=== PATIENT | female | born 1985 | race Caucasian/White ===

== ENCOUNTER 2020-06-19 21:45 | Observation (INO) | payer OTHER ==
[2020-06-19] MEDS ORDERED: ONDANSETRON 4 MG/2 ML VIAL IVP STA (22:09)
[2020-06-19] MEDS ORDERED: SODIUM CHLORIDE 0.9% 1,000 ML IV ONE (22:09)
[2020-06-19] MEDS ORDERED: KETOROLAC 15 MG/ML 1 ML VIAL IVP STA (22:09)
--- NOTE | 2020-06-19 23:15 | ED ---
General Adult HPI - General Chief complaint: Urogenital Stated complaint: Kidney Infection Time Seen by Provider: 06/19/20 22:00 Source: patient Mode of arrival: ambulatory Limitations: no limitations - History of Present Illness Initial comments: 34 year-old female patient presents to the emergency department for evaluation of UTI with increased right flank pain, vomiting, and fever. Patient states that she has had symptoms for the last two days. Has been taking a Bactrim. Denies any abnormal vaginal bleeding or discharge. Denies concern for STI. Denies chance of . Denies history of kidney infection or kidney stone. Patient denies any recent rash, cough, shortness of breath, chest pain, diarrhea, constipation, back pain, numbness, tingling, dizziness, weakness, headache, visual changes, or any other complaints. - Related Data Home Medications Medication Instructions Recorded Confirmed Acetaminophen Tab [Tylenol Tab] 1,000 mg PO BID PRN 06/19/20 06/19/20 Sulfamethox-Tmp 800-160Mg [Bactrim 1 tab PO Q12HR 06/19/20 06/19/20 DS 800-160 mg] Allergies Allergy/AdvReac Type Severity Reaction Status Date / Time No Known Allergies Allergy Unverified 06/19/20 22:55 Review of Systems ROS Statement: Those systems with pertinent positive or pertinent negative responses have been documented in the HPI. ROS Other: All systems not noted in ROS Statement are negative. Past Medical History Past Medical History: No Reported History History of Any Multi-Drug Resistant Organisms: None Reported Past Surgical History: No Surgical Hx Reported Smoking Status: Current some day smoker Past Alcohol Use History: None Reported Past Drug Use History: None Reported General Exam Limitations: no limitations General appearance: alert, in no apparent distress, other (Physical well- developed, well-nourished adult female patient in no acute distress. Vital signs upon presentation are temperature 98.0F, pulse 113, respirations 18, blood pressure 113/78, pulse ox 98% on room air.) ENT exam: Present: normal exam, normal oropharynx, mucous membranes moist Respiratory exam: Present: normal lung sounds bilaterally. Absent: respiratory distress, wheezes, rales, rhonchi, stridor Cardiovascular Exam: Present: regular rate, normal rhythm, normal heart sounds. Absent: systolic murmur, diastolic murmur, rubs, gallop, clicks GI/Abdominal exam: Present: soft, tenderness (right upper quadrant), normal bowel sounds. Absent: distended, guarding, rebound, rigid Back exam: Present: normal inspection, CVA tenderness (R). Absent: CVA tenderness (L) Neurological exam: Present: alert, oriented X3, CN II-XII intact Psychiatric exam: Present: normal affect, normal mood Skin exam: Present: warm, dry, intact, normal color. Absent: rash Course Vital Signs 06/19/20 06/19/20 21:46 23:01 Temperature 98.0 F Pulse Rate 113 H Respiratory 18 Rate Blood Pressure 113/78 94/56 O2 Sat by Pulse 98 Oximetry - Reevaluation(s) Reevaluation #1: 06/20/20 01:30 Sepsis diagnosed at 0130. Medical Decision Making - Medical Decision Making 34 year-old female patient presents to the emergency department for evaluation of right flank pain, diagnosed with "kidney infection" two days ago. Has been taking Bactrim. Symptoms worsened today. Physical examination reveals right CVA tenderness. Abdomen soft, non-tender. Labs reviewed, white blood cell count at 12.5. Did have signs of urinary tract infection. There is blood present and given unilateral CVA tenderness a did order CT of the abdomen and pelvis without contrast which did show a 1.1 cm x 0.6 sonometer stone in the right mid ureter with right-sided hydronephrosis and perinephric fat stranding. Patient was started on IV antibiotics. Did consult with the on-call urologist Dr. Craig who recommends admission, nothing by mouth, and IV antibiotics. I did discuss findings and results with the patient. She is agreeable this plan. - Lab Data Result diagrams: 06/19/20 23:03 06/20/20 00:01 Lab Results 06/19/20 06/19/20 06/19/20 Range/Units 22:36 22:36 23:03 WBC 12.5 H (3.8-10.6) k/uL RBC 4.18 (3.80-5.40) m/uL Hgb 11.9 (11.4-16.0) gm/dL Hct 36.1 (34.0-46.0) % MCV 86.5 (80.0-100.0) fL MCH 28.6 (25.0-35.0) pg MCHC 33.0 (31.0-37.0) g/dL RDW 14.3 (11.5-15.5) % Plt Count 152 (150-450) k/uL MPV 7.6 Neutrophils % 85 % Lymphocytes % 7 % Monocytes % 5 % Eosinophils % 0 % Basophils % 0 % Neutrophils # 10.6 H (1.3-7.7) k/uL Lymphocytes # 0.9 L (1.0-4.8) k/uL Monocytes # 0.6 (0-1.0) k/uL Eosinophils # 0.0 (0-0.7) k/uL Basophils # 0.0 (0-0.2) k/uL Sodium (137-145) mmol/L Potassium (3.5-5.1) mmol/L Chloride (98-107) mmol/L Carbon Dioxide (22-30) mmol/L Anion Gap mmol/L BUN (7-17) mg/dL Creatinine (0.52-1.04) mg/dL Est GFR (CKD-EPI)AfAm (>60 ml/min/1.73 sqM) Est GFR (CKD-EPI)NonAf (>60 ml/min/1.73 sqM) Glucose (74-99) mg/dL Plasma Lactic Acid Oliverio (0.7-2.0) mmol/L Calcium (8.4-10.2) mg/dL Total Bilirubin (0.2-1.3) mg/dL AST (14-36) U/L ALT (4-34) U/L Alkaline Phosphatase (38-126) U/L Total Protein (6.3-8.2) g/dL Albumin (3.5-5.0) g/dL Urine Color Yellow Urine Appearance Cloudy H (Clear) Urine pH 6.0 (5.0-8.0) Ur Specific [place] 1.005 (1.001-1.035) Urine Protein 1+ H (Negative) Urine Glucose (UA) Negative (Negative) Urine Ketones Trace H (Negative) Urine Blood Moderate H (Negative) Urine Nitrite Negative (Negative) Urine Bilirubin Negative (Negative) Urine Urobilinogen <2.0 (<2.0) mg/dL Ur Leukocyte Esterase Large H (Negative) Urine RBC 56 H (0-5) /hpf Urine WBC 116 H (0-5) /hpf Ur Squamous Epith Cells 17 H (0-4) /hpf Urine Bacteria Rare H (None) /hpf Urine HCG, Qual Not Detected (Not Detectd) 06/19/20 06/20/20 Range/Units 23:03 00:01 WBC (3.8-10.6) k/uL RBC (3.80-5.40) m/uL Hgb (11.4-16.0) gm/dL Hct (34.0-46.0) % MCV (80.0-100.0) fL MCH (25.0-35.0) pg MCHC (31.0-37.0) g/dL RDW (11.5-15.5) % Plt Count (150-450) k/uL MPV Neutrophils % % Lymphocytes % % Monocytes % % Eosinophils % % Basophils % % Neutrophils # (1.3-7.7) k/uL Lymphocytes # (1.0-4.8) k/uL Monocytes # (0-1.0) k/uL Eosinophils # (0-0.7) k/uL Basophils # (0-0.2) k/uL Sodium 130 L (137-145) mmol/L Potassium 3.9 (3.5-5.1) mmol/L Chloride 102 (98-107) mmol/L Carbon Dioxide 20 L (22-30) mmol/L Anion Gap 8 mmol/L BUN 22 H (7-17) mg/dL Creatinine 1.75 H (0.52-1.04) mg/dL Est GFR (CKD-EPI)AfAm 44 (>60 ml/min/1.73 sqM) Est GFR (CKD-EPI)NonAf 38 (>60 ml/min/1.73 sqM) Glucose 90 (74-99) mg/dL Plasma Lactic Acid Oliverio 1.0 (0.7-2.0) mmol/L Calcium 8.2 L (8.4-10.2) mg/dL Total Bilirubin 0.5 (0.2-1.3) mg/dL AST 33 (14-36) U/L ALT 25 (4-34) U/L Alkaline Phosphatase 97 (38-126) U/L Total Protein 6.3 (6.3-8.2) g/dL Albumin 2.6 L (3.5-5.0) g/dL Urine Color Urine Appearance (Clear) Urine pH (5.0-8.0) Ur Specific [place] (1.001-1.035) Urine Protein (Negative) Urine Glucose (UA) (Negative) Urine Ketones (Negative) Urine Blood (Negative) Urine Nitrite (Negative) Urine Bilirubin (Negative) Urine Urobilinogen (<2.0) mg/dL Ur Leukocyte Esterase (Negative) Urine RBC (0-5) /hpf Urine WBC (0-5) /hpf Ur Squamous Epith Cells (0-4) /hpf Urine Bacteria (None) /hpf Urine HCG, Qual (Not Detectd) - Radiology Data Radiology results: report reviewed CT abdomen and pelvis without contrast was obtained. Report was reviewed in its entirety. Impression by Dr. Monique shows 1.1 x0.6 cm obstructing stone in the right mid-ureter with moderate right hydroureteronephrosis and asymmetric right perinephric stranding. Disposition Clinical Impression: Kidney stone on right side, Urinary tract infection, Sepsis Disposition: ADMITTED IP TO THIS [facility] Condition: Serious Decision to Admit Reason: Admit from EC Decision Date: 06/20/20 Decision Time: 01:42
[2020-06-19 23:21] LABS: Basophils % (A) 0 %; Eosinophils % (A) 0 %; HCT 36.1 % (34.0-46.0); HGB 11.9 gm/dL (11.4-16.0); Lymphocytes # (A) 0.9 k/uL (1.0-4.8); Lymphocytes % (A) 7 %; MCH 28.6 pg (25.0-35.0); MCV 86.5 fL (80.0-100.0); Mean Platelet Volume 7.6; Monocytes # (A) 0.6 k/uL (0-1.0); Monocytes % (A) 5 %; Neutrophils # (A) 10.6 k/uL (1.3-7.7); Neutrophils % (A) 85 %; Platelet Count 152 k/uL (150-450); RBC 4.18 m/uL (3.80-5.40); RDW 14.3 % (11.5-15.5); WBC 12.5 k/uL (3.8-10.6)
[2020-06-20 00:05] LABS: Appearance,Urine Cloudy (Clear); Bacteria,Urine Rare /hpf; Bilirubin,Urine Negative (Negative); Blood,Urine Moderate (Negative); Color,Urine Yellow; Glucose,Urine (UA) Negative (Negative); Ketones,Urine Trace (Negative); Leukocyte Esterase,Urine Large (Negative); Nitrite,Urine Negative (Negative); Protein,Urine 1+ (Negative); RBC,Urine 56 /hpf (0-5); Specific Gravity,Urine 1.005 (1.001-1.035); Squamous Epithelial Cell,Urine 17 /hpf (0-4); Urobilinogen,Urine <2.0 mg/dL (<2.0); WBC,Urine 116 /hpf (0-5)
[2020-06-20 00:37] LABS: Albumin 2.6 g/dL (3.5-5.0); Calcium 8.2 mg/dL (8.4-10.2); Potassium 3.9 mmol/L (3.5-5.1); Total Bilirubin 0.5 mg/dL (0.2-1.3); Total Protein 6.3 g/dL (6.3-8.2)
[2020-06-20] MEDS ORDERED: cefTRIAXone IN SWFI 1,000 MG/10 ML SYRINGE IVP STA (01:28)
--- NOTE | 2020-06-20 01:28 | CT ---
EXAM: CT Abdomen and Pelvis Without Intravenous Contrast CLINICAL HISTORY: ITS.REASON CT Reason: Right flank pain TECHNIQUE: Axial computed tomography images of the abdomen and pelvis without intravenous contrast. CTDI is 10.4 mGy and DLP is 579.8 mGy-cm. This CT exam was performed using one or more of the following dose reduction techniques: automated exposure control, adjustment of the mA and/or kV according to patient size, and/or use of iterative reconstruction technique. COMPARISON: No relevant prior studies available. FINDINGS: Lung bases: Unremarkable. No mass. No consolidation. ABDOMEN: Liver: Unremarkable. Gallbladder and bile ducts: Unremarkable. No calcified stones. No ductal dilation. Pancreas: Unremarkable. No ductal dilation. Spleen: Unremarkable. No splenomegaly. Adrenals: Unremarkable. No mass. Kidneys and ureters: 1.1 x 0.6 cm obstructing stone in the mid-right ureter with moderate right hydroureteronephrosis and asymmetric right perinephric stranding. Stomach and bowel: Unremarkable. No obstruction. No mucosal thickening. PELVIS: Appendix: No findings to suggest acute appendicitis. Bladder: Unremarkable. No stones. Reproductive: Unremarkable as visualized. ABDOMEN and PELVIS: Intraperitoneal space: Unremarkable. No free air. No significant fluid collection. Bones/joints: No acute fracture. No dislocation. Soft tissues: Unremarkable. Vasculature: Unremarkable. No abdominal aortic aneurysm. Lymph nodes: Unremarkable. No enlarged lymph nodes. IMPRESSION: 1.1 x 0.6 cm obstructing stone in the mid-right ureter with moderate right hydroureteronephrosis and asymmetric right perinephric stranding.
[2020-06-20] MEDS ORDERED: NALOXONE 0.4 MG/ML 1 ML VIAL IV PRN (01:40)
[2020-06-20] MEDS ORDERED: HYDROmorphone 0.5 MG/0.5 ML SYRINGE IVP PRN (01:40)
[2020-06-20] MEDS ORDERED: ONDANSETRON 4 MG/2 ML VIAL IVP PRN (01:40)
[2020-06-20] MEDS: ACETAMINOPHEN TAB 325 MG TAB PO PRN (03:05)
[2020-06-20] MEDS: SODIUM CHLORIDE 0.9% 1,000 ML IV SCH ×3 (03:09→17:31)
--- NOTE | 2020-06-20 12:47 | P.GSHP ---
History of Present Illness H&P Date: 06/20/20 Chief Complaint: Right flank pain This is 34-year-old female with history of 1.1 cm right-sided midureteral stone. She indicated she's been having intractable pain for the past 4 days. She has been prescribed Bactrim for possible UTI. She indicated her pain has been assoc iated with nausea, she is also been complaining of chills. In the ER she underwent a CT which showed evidence of a 1.1 cm right-sided midureteral stone with hydronephrosis. Her creatinine was elevated at 1.75 her UA was concerning for a possible UTI, but of note it had 17 squamous cells. Denies any previous history of stones, no family history of stones. Today on evaluation she still having severe pain, that she rates as 7 out of 10. - Constitutional Constitutional: Reports chills, Denies fever - Cardiovascular Cardiovascular: Denies chest pain, Denies shortness of breath - Respiratory Respiratory: Denies cough, Denies 7 - Gastrointestinal Gastrointestinal: Reports nausea - Genitourinary (Female) Genitourinary: Reports flank pain, Denies dysuria, Denies hematuria - Musculoskeletal Musculoskeletal: Denies myalgias - Neurological Neurological: Denies numbness, Denies weakness Past Medical History Past Medical History: No Reported History History of Any Multi-Drug Resistant Organisms: None Reported Past Surgical History: No Surgical Hx Reported Smoking Status: Former smoker Past Alcohol Use History: None Reported Past Drug Use History: None Reported Medications and Allergies Home Medications Medication Instructions Recorded Confirmed Type Acetaminophen Tab [Tylenol Tab] 1,000 mg PO BID PRN 06/19/20 06/19/20 History Sulfamethox-Tmp 800-160Mg [Bactrim 1 tab PO Q12HR 06/19/20 06/19/20 History DS 800-160 mg] Allergies Allergy/AdvReac Type Severity Reaction Status Date / Time No Known Allergies Allergy Unverified 06/19/20 22:55 Surgical - Exam Vital Signs Temp Pulse Resp BP Pulse Ox 98.0 F 113 H 18 113/78 98 06/19/20 21:46 06/19/20 21:46 06/19/20 21:46 06/19/20 21:46 06/19/20 21:46 - General well developed, well nourished, moderate distress, moderate pain - Eyes PERRL, normal ocular movement - ENT normal nares, normal mucosa - Respiratory normal expansion, normal respiratory effort - Neurologic normal coordination, normal sensation - Psychiatric oriented to time, oriented to person, oriented to place, speech is normal Results - Labs 06/19/20 23:03 06/20/20 00:01 Abnormal Lab Results - Last 24 Hours (Table) 06/19/20 06/19/20 06/20/20 Range/Units 22:36 23:03 00:01 WBC 12.5 H (3.8-10.6) k/uL Neutrophils # 10.6 H (1.3-7.7) k/uL Lymphocytes # 0.9 L (1.0-4.8) k/uL Sodium 130 L (137-145) mmol/L Carbon Dioxide 20 L (22-30) mmol/L BUN 22 H (7-17) mg/dL Creatinine 1.75 H (0.52-1.04) mg/dL Calcium 8.2 L (8.4-10.2) mg/dL Albumin 2.6 L (3.5-5.0) g/dL Urine Appearance Cloudy H (Clear) Urine Protein 1+ H (Negative) Urine Ketones Trace H (Negative) Urine Blood Moderate H (Negative) Ur Leukocyte Esterase Large H (Negative) Urine RBC 56 H (0-5) /hpf Urine WBC 116 H (0-5) /hpf Ur Squamous Epith Cells 17 H (0-4) /hpf Urine Bacteria Rare H (None) /hpf Microbiology - Last 24 Hours (Table) 06/19/20 22:36 Urine Culture - Preliminary Urine,Voided Diabetes panel 06/20/20 Range/Units 00:01 Sodium 130 L (137-145) mmol/L Potassium 3.9 (3.5-5.1) mmol/L Chloride 102 (98-107) mmol/L Carbon Dioxide 20 L (22-30) mmol/L BUN 22 H (7-17) mg/dL Creatinine 1.75 H (0.52-1.04) mg/dL Glucose 90 (74-99) mg/dL Calcium 8.2 L (8.4-10.2) mg/dL AST 33 (14-36) U/L ALT 25 (4-34) U/L Alkaline Phosphatase 97 (38-126) U/L Total Protein 6.3 (6.3-8.2) g/dL Albumin 2.6 L (3.5-5.0) g/dL Calcium panel 06/20/20 Range/Units 00:01 Calcium 8.2 L (8.4-10.2) mg/dL Albumin 2.6 L (3.5-5.0) g/dL Pituitary panel 06/20/20 Range/Units 00:01 Sodium 130 L (137-145) mmol/L Potassium 3.9 (3.5-5.1) mmol/L Chloride 102 (98-107) mmol/L Carbon Dioxide 20 L (22-30) mmol/L BUN 22 H (7-17) mg/dL Creatinine 1.75 H (0.52-1.04) mg/dL Glucose 90 (74-99) mg/dL Calcium 8.2 L (8.4-10.2) mg/dL Adrenal panel 06/20/20 Range/Units 00:01 Sodium 130 L (137-145) mmol/L Potassium 3.9 (3.5-5.1) mmol/L Chloride 102 (98-107) mmol/L Carbon Dioxide 20 L (22-30) mmol/L BUN 22 H (7-17) mg/dL Creatinine 1.75 H (0.52-1.04) mg/dL Glucose 90 (74-99) mg/dL Calcium 8.2 L (8.4-10.2) mg/dL Total Bilirubin 0.5 (0.2-1.3) mg/dL AST 33 (14-36) U/L ALT 25 (4-34) U/L Alkaline Phosphatase 97 (38-126) U/L Total Protein 6.3 (6.3-8.2) g/dL Albumin 2.6 L (3.5-5.0) g/dL Assessment and Plan Assessment: 34-year-old female with 1.1 cm right-sided midureteral stone. UA is concerning for UTI, but it's poor specimen. . Discussed with her given the possibility of a UTI primary ureteroscopy cannot be performed. Discussed with her the option of doing a stent placement, she was agreeable with the plan was to go ahead and proceed was stent placement. She understood the risk of bleeding and infection, also understood that this is not a definitive stone treatment. Understood the risk of stent encrustation. -Keep NPO -Will proceed with OR for right sided stent placement
[2020-06-20] MEDS ORDERED: IV FLUID CONTINUATION 350 ML IV ONE (15:08)
[2020-06-20] MEDS ORDERED: LIDOCAINE 1% (10MG/ML) FOR IV START INTRADERMA PRN (15:14)
[2020-06-20] MEDS ORDERED: DEXAMETHASONE SOD PHOSPHATE 4 MG/ML 1 ML VIAL IV ONE ×2 (15:14→15:18)
[2020-06-20] MEDS ORDERED: SCOPOLAMINE 1.5MG/72HR PATCH TRANSDERM ONE ×2 (15:14→15:18)
[2020-06-20] MEDS ORDERED: LACTATED RINGERS 1,000 ML IV SCH (15:15)
[2020-06-20] MEDS ORDERED: IOPAMIDOL-370 50ML BTL MISCELLANE ONE (15:56)
[2020-06-20] MEDS ORDERED: PROPOFOL 10 MG/ML 20 ML VIAL IV ONE (16:05)
[2020-06-20] MEDS ORDERED: MIDAZOLAM 2 MG/2 ML VIAL ONE (16:05)
[2020-06-20] MEDS ORDERED: fentaNYL (PF) 50 MCG/ML 2 ML AMP ONE (16:05)
[2020-06-20] MEDS ORDERED: SUCCINYLCHOLINE CHLORIDE 100 MG/5 ML SYR IV ONE (16:05)
[2020-06-20] MEDS ORDERED: SODIUM CHLORIDE 0.9% 100 ML with GENTAMICIN 80 MG IV ONE ×2 (16:20)
[2020-06-20] MEDS ORDERED: LACTATED RINGERS 1,000 ML IV ONE (16:28)
--- NOTE | 2020-06-20 16:43 | P.OP ---
Date of Procedure: 06/20/20 Preoperative Diagnosis: right ureteral calculi Postoperative Diagnosis: same Procedure(s) Performed: Cystoscopy, right stent placement Implants: 6-Kittitian by 24 cm stent Anesthesia: NAA Surgeon: Vivek Craig Estimated Blood Loss (ml): 0 Pathology: none sent Condition: stable Disposition: PACU Indications for Procedure: This is a 34-year-old female history 1.1 cm midureteral stone. She's been symptomatic from her stone and having intractable pain. Her UA was concerning for UTI, but of note it was contaminated. Discussed with her given the possibility of a UTI, primary Ureteroscopy cannot be performed. Discussed with her the option of ureteral stent. Discussed with her the risk which includes but not limited to bleeding, infection, injury to the ureter. Discussed the risk of stent encrustation, and the importance of follow-up for ureteroscopy. She understood all the risk and agreed proceed with right sided ureteral stent placement Description of Procedure: Patient brought to the operating room, general anesthesia was induced. She was prepped and draped in sterile fashion and placed in dorsal lithotomy position. Cystoscopy fitted with 22-Kittitian sheath was inserted per urethra, cystoscopy was performed showed no abnormality within the bladder. Attention was then carried to the right ureteral orifice which was intubated with a sensor wire, a ureteral catheter was passed over the wire, and right-sided renal aspirate was obtained and sent for culture. At this time the wire was readvanced through the catheter and the catheter was removed with the wire in place. Next a ureteral stent was passed over the wire, the proximal curl was visualized on fluoroscopy and the distal curl was visualized using the cystoscope. The bladder was emptied at the end of the case. The patient tolerated the procedure well was taken to PACU in stable condition
--- NOTE | 2020-06-20 16:57 | FL ---
Fluoroscopy HISTORY: Ureteral stent placement 9 seconds fluoroscopy time supplied to the referring clinician. 2 intraoperative C-arm images docume nt the procedure. See dictated report from urology.
[2020-06-20] MEDS ORDERED: KETOROLAC 15 MG/ML 1 ML VIAL IVP ONE (17:02)
[2020-06-21] MEDS: SODIUM CHLORIDE 0.9% 1,000 ML IV SCH ×2 (03:59→08:38)
[2020-06-21] MEDS ORDERED: fentaNYL (PF) 50 MCG/ML 2 ML AMP IVP PRN (07:00)
[2020-06-21] MEDS ORDERED: HYDROmorphone 0.5 MG/0.5 ML SYRINGE IVP PRN (07:00)
[2020-06-21] MEDS ORDERED: METOCLOPRAMIDE 5 MG/ML 2 ML VIAL IVP PRN (07:00)
--- NOTE | 2020-06-21 07:31 | P.DS ---
Providers Date of admission: 06/20/20 01:44 Attending physician: Vivek Craig MD Primary care physician: Stated None Hospital Course: This 34. She presented to the emergency room for right flank pain. She is found to have a 1 cm distal right ureteral stone. There is a question of urine infection on antibiotics prior to this.Dr Craig did cystoscopy and placement of a right double-J catheter. This is relieved her discomfort. Her vital signs are stable. She'll be transferred back to the detention. She will go back on Bactrim double strength. She'll take Tylenol for pain. She'll follow-up with Dr. Craig in one week. He'll make arrangements for right ureteroscopy laser lithotripsy stone and stent removal. Her condition is good. She is in no pain. Patient Condition at Discharge: Good Plan - Discharge Summary Discharge Rx Participant: No New Discharge Prescriptions: New Sulfamethoxazole/Trimethoprim [Bactrim DS 800-160 mg] 1 each PO Q12HR #20 tablet No Action Sulfamethox-Tmp 800-160Mg [Bactrim DS 800-160 mg] 1 tab PO Q12HR Acetaminophen Tab [Tylenol Tab] 1,000 mg PO BID PRN PRN Reason: Pain Discharge Medication List Acetaminophen Tab [Tylenol Tab] 1,000 mg PO BID PRN 06/19/20 [History] Sulfamethox-Tmp 800-160Mg [Bactrim DS 800-160 mg] 1 tab PO Q12HR 06/19/20 [History] Sulfamethoxazole/Trimethoprim [Bactrim DS 800-160 mg] 1 each PO Q12HR #20 tablet 06/21/20 [Rx] Follow up Appointment(s)/Referral(s): None,Stated [Primary Care Provider] - 1-2 days Vivek Craig MD [STAFF PHYSICIAN] - 1 Week Patient Instructions/Handouts: *Surgery [facility] - Scopalamine Patch Instructions Discharge Disposition: TRANSFER TO SNF/ECF
[2020-06-21 08:27] VITALS: BP 99/60; PULSE 54; RESP 18; TEMP 97.4
[2020-06-21] MEDS: ACETAMINOPHEN TAB 325 MG TAB PO PRN (09:18)
== END 2020-06-21 13:47 ==
LOC: EC 21:45 → 6NMEDSUR 06-20 01:44 → INTOOBSV 06-20 01:44 → UNDODISIN 06-21 13:47
PROVIDERS: ADMIT Urology; ATTEND Urology
PROC: 0T768DZ Dilation of Right Ureter with Intraluminal Device, Via Natural or Artificial Opening Endoscopic (ICD-10-PCS; principal; 2020-06-20 10:15)
DX: N20.2 Calculus of kidney with calculus of ureter (principal); N13.6 Pyonephrosis; F17.210 Nicotine dependence, cigarettes, uncomplicated; Z20.822 Contact with and (suspected) exposure to COVID-19; Z65.3 Problems related to other legal circumstances
CPT/HCPCS: 52332; 96361; 96374; 96375; 99285; 36415 ×2; 80053; 83605; 85025; 81001; 81025; 87040; 87070; 87086; 87205; 87077; 87186; 87635; 74176; G0378 ×2; C2625; C1758; C1769; J2250; J1580; J1100; J2405; J0696; J3010; J1885 ×2; J0330; J2704

== ENCOUNTER → 2020-08-05 | Day surgery (SDC) | payer BC, OTHER ==
[2020-08-03 15:25] VITALS: BMI 31.7
--- NOTE | 2020-08-04 17:10 | P.HPIHPCON ---
History of Present Illness H&P Date: 08/04/20 Chief Complaint: Right-sided ureteral stone This is a 34-year-old female with history of a 1.1 cm right-sided midureteral stone. She is status post stent placement on June 20, she had a UTI at that time. This completed a course of by mouth antibiotics. She presents today for definitive stone management. Options of ureteroscopy and ESWL were discussed with her. She agreed to proceed with ureteroscopy. Discussed with her the risks which includes but not limited to bleeding, infection, injury to the ureter. She understood all the risk and agreed to proceed. Of note patient lives in a senior living house, and has been unable to come in for clinic visit, a urine culture could not be obtained on her. There is also concern of noncompliance, and a concern of a retained stent. Given this findings decision was made to place the patient on preoperative by mouth antibiotics based on her last culture sensitivity, she did understand given the lack of urine culture prior to surgery she is at increased risk of sepsis Consent for Procedure: I have explained the operation/procedure to the patient, including the risks, benefits, side effects, alternative therapies (including not receiving the proposed treatment or service), the likelihood of the patient achieving his/her goals, and potential recuperation problems for the procedure/sedation/analgesia, as well as any blood products, if indicated. I also explained to the patient the risks, benefits and side effects of the alternatives, as well as the risks related to not receiving the proposed procedure, care, treatment, or services. Past Medical History Past Medical History: No Reported History Additional Past Medical History / Comment(s): Kidney stone, has Rt ureteral stent History of Any Multi-Drug Resistant Organisms: None Reported Past Surgical History: Appendectomy, Section Additional Past Surgical History / Comment(s): C-S x3. Pilonidal cyst exc. Cysto w/ Rt ureteral stent Past Anesthesia/Blood Transfusion Reactions: Previous Problems w/ Anesthesia Additional Past Anesthesia/Blood Transfusion Reaction / Comment(s): 2009 w/ "pilonidal cyst she coded, had Propofol" Smoking Status: Current every day smoker - Past Family History Mother Family Medical History: No Reported History Medications and Allergies Home Medications Medication Instructions Recorded Confirmed Type Cephalexin [Keflex] 500 mg PO Q8HR 08/03/20 08/03/20 History Vitamin C/Biotin [Hair, Skin and 1 tab PO DAILY 08/03/20 08/03/20 History Nails] Allergies Allergy/AdvReac Type Severity Reaction Status Date / Time No Known Allergies Allergy Unverified 08/03/20 15:03 Surgical - Exam - General no distress, no pain - Eyes PERRL, normal ocular movement - ENT normal nares, normal mucosa - Abdomen Abdomen: soft, non tender - Psychiatric oriented to time, oriented to person, oriented to place Assessment and Plan Assessment: 34-year-old female history of right-sided ureteral stone -Or for right-sided ureteroscopy, with holmium laser lithotripsy, stone basketing and and stent exchange
[~2020-08-05] MED LIST: DEXAMETHASONE SOD PHOSPHATE 4 MG/ML 1 ML VIAL IV ONE; HYDROcodone/APAP 5-325MG 1 EACH TAB ONE; HYDROcodone/APAP 5-325MG 1 EACH TAB PO ONE; HYDROmorphone (PF) 1 MG/ML ONE; HYDROmorphone 0.5 MG/0.5 ML SYRINGE IVP PRN; IOPAMIDOL-370 50ML BTL MISCELLANE ONE; LACTATED RINGERS 1,000 ML IV ONE; LACTATED RINGERS 1,000 ML IV SCH; LIDOCAINE 1% INJ 10MG/ML (20 ML MDV) ONE; MIDAZOLAM 2 MG/2 ML VIAL IV PRN; MIDAZOLAM 2 MG/2 ML VIAL ONE; ONDANSETRON 4 MG/2 ML VIAL IVP ONE; PROPOFOL 10 MG/ML 20 ML VIAL IV ONE; SCOPOLAMINE 1.5MG/72HR PATCH TRANSDERM ONE; SUCCINYLCHOLINE CHLORIDE 100 MG/5 ML SYR IV ONE; fentaNYL (PF) 50 MCG/ML 2 ML AMP ONE
[2020-08-05 11:01] LABS: HCT 38.6 % (34.0-46.0); HGB 13.3 gm/dL (11.4-16.0); MCH 29.4 pg (25.0-35.0); MCHC 34.5 g/dL (31.0-37.0); Mean Platelet Volume 6.8; Platelet Count 261 k/uL (150-450); RBC 4.54 m/uL (3.80-5.40); RDW 13.7 % (11.5-15.5); WBC 7.5 k/uL (3.8-10.6)
[2020-08-05 11:07] LABS: Appearance,Urine Clear (Clear); Bacteria,Urine Rare /hpf; Bilirubin,Urine Negative (Negative); Blood,Urine Large (Negative); Color,Urine Light Yellow; Glucose,Urine (UA) Negative (Negative); Ketones,Urine Negative (Negative); Leukocyte Esterase,Urine Large (Negative); Mucus,Urine Rare /hpf; Nitrite,Urine Negative (Negative); PH, Urine 5.5 (5.0-8.0); Protein,Urine Trace (Negative); RBC,Urine 83 /hpf (0-5); Specific Gravity,Urine 1.007 (1.001-1.035); Squamous Epithelial Cell,Urine 2 /hpf (0-4); Urobilinogen,Urine <2.0 mg/dL (<2.0); WBC,Urine 8 /hpf (0-5)
[2020-08-05 11:14] LABS: African American GFR (CKD) >90 (>60 ml/min/1.73 sqM); Anion Gap 6 mmol/L; Blood Urea Nitrogen 16 mg/dL (7-17); Calcium 9.1 mg/dL (8.4-10.2); Carbon Dioxide 23 mmol/L (22-30); Chloride 108 mmol/L (98-107); Glucose 91 mg/dL (74-99); Non-African American GFR(CKD) >90 (>60 ml/min/1.73 sqM); Potassium 4.4 mmol/L (3.5-5.1); Sodium 137 mmol/L (137-145)
--- NOTE | 2020-08-05 11:33 | XR ---
KUB HISTORY: Right ureteral calculus, preop Frontal KUB and [address] scan 06/20/2020 Right-sided double-J stent is in place. There is an oval calcification superimposed over the L5-S1 di sc space measuring approximately 2.1 cm in cephalad to caudal dimension by 6 mm in transverse dimensi on consistent with ureteral calculus. There are overlying artifacts. Lung bases are clear. IMPRESSION: Imaging from urology, right ureteral calculus
--- NOTE | 2020-08-05 13:40 | P.OP ---
Date of Procedure: 08/05/20 Preoperative Diagnosis: Right ureteral stone Postoperative Diagnosis: Same Procedure(s) Performed: Cystoscopy, right ureteroscopy, holmium laser lithotripsy, stone basketing and stent removal Implants: None Anesthesia: NAA Surgeon: Vivek Craig Estimated Blood Loss (ml): 5 Pathology: other (Right ureteral stone) Condition: stable Disposition: PACU Indications for Procedure: This is a 34-year-old female with history of a 1.1 cm right-sided midureteral stone. She is status post stent placement on June 20, she had a UTI at that time. This completed a course of by mouth antibiotics. She presents today for definitive stone management. Options of ureteroscopy and ESWL were discussed with her. She agreed to proceed with ureteroscopy. Discussed with her the risks which includes but not limited to bleeding, infection, injury to the ureter. She understood all the risk and agreed to proceed. Of note patient lives in a [facility] house, and has been unable to come in for clinic visit, a urine culture could not be obtained on her. There is also concern of noncompliance, and a concern of a retained stent. Given this findings decision was made to place the patient on preoperative by mouth antibiotics based on her last culture sensitivity, she did understand given the lack of urine culture prior to surgery she is at increased risk of sepsis Operative Findings: Right midureteral stone Description of Procedure: She was brought to the operating room, general anesthesia was induced. She was prepped and draped in sterile fashion a placement dorsal lithotomy position. A cystoscopy fitted with 21-[place] sheath was inserted per urethra, cystoscopy was performed which showed no abnormality within the bladder. at this time the stent was grasped and removed. Next a semirigid ureteroscope was inserted and advanced up the right ureteral orifice, the stone was encountered in the mid ureter, the stone was fragmented into small fragments, sizable fragments were removed using the stone basket. One of the fragments migrated up to the kidney, at this time a sensor wire was advanced through the scope and the scope was withdrawn with the wire in place. Next th access sheath was passed over the wire into the proximal ureter. Next a flexible ureteroscope was inserted and renoscopy was performed which showed the fragment within the kidney. The fragment was further fragmented, fragments were removed using the stone basket. Repeat renoscopy showed no injury to the kidney or any sizable fragments. Pullback ureteroscopy was performed showed no injury to the ureter or any sizabl e fragments. There was no evidence of ureteral edema, thus a stent was not placed. The bladder was emptied at the end of the case. Patient tolerated procedure well was taken to PACU in stable condition
[2020-08-05 13:45] VITALS: TEMP 97
--- NOTE | 2020-08-05 13:56 | FL ---
Fluoroscopy HISTORY: Right kidney stone 2 seconds fluoroscopy time supplied to the referring clinician. 1 intraoperative C-arm images docume nt the procedure. See dictated report from urology.
[2020-08-05 14:09] VITALS: RESP 17
[2020-08-05 14:27] VITALS: BP 122/72; PULSE 63
== END | disposition home or self-care (01) ==
LOC: OR 11:17
PROVIDERS: ATTEND Urology
DX: N20.1 Calculus of ureter (principal); F17.210 Nicotine dependence, cigarettes, uncomplicated
CPT/HCPCS: 81025; 80048; 85027; 81001; 82365; 74018; 52353; C1894; C1769; J2250; J1100; J0690; J2405; J2001; J3010; J1170; J0330; J2704